=== PATIENT | female | born 1950 | race Two or more races ===

== ENCOUNTER 2022-08-27 08:14 | Outpatient (CLI) | payer OTHER | END 2022-08-27 08:17 | disposition home or self-care (01) | LOC: NUCLEAR 08:14 | DX: C50.412 Malignant neoplasm of upper-outer quadrant of left female breast (principal); Z51.11 Encounter for antineoplastic chemotherapy; R11.2 Nausea with vomiting, unspecified; Z20.822 Contact with and (suspected) exposure to COVID-19 | CPT/HCPCS: 78816; A9552 ==

== ENCOUNTER 2023-05-13 12:14 | Outpatient (CLI) | payer OTHER | END 2023-05-13 12:26 | disposition home or self-care (01) | LOC: TOM 12:14 | DX: Z51.11 Encounter for antineoplastic chemotherapy (principal); C50.412 Malignant neoplasm of upper-outer quadrant of left female breast; R11.2 Nausea with vomiting, unspecified; Z20.822 Contact with and (suspected) exposure to COVID-19; C79.51 Secondary malignant neoplasm of bone ==